=== PATIENT | female | born 1975 | race Caucasian/White ===

== ENCOUNTER 2017-03-12 08:50 | Emergency (ER) | payer OTHER ==
[~2017-03-12] VITALS: Ht 175.3 cm; Wt 100.0 kg
[2017-03-12 08:52] VITALS: BP 171/107; PULSE 99; RESP 18; TEMP 99; O2SAT 100
[2017-03-12] MEDS ORDERED: HYDR-3516 PO (09:21)
[2017-03-12] MEDS ORDERED: KETOROLAC TROMETHAMINE 60 MG/2 ML (IM) VIAL IM ONE (09:30)
--- NOTE | 2017-03-12 09:31 | PD ---
HPI Chief Complaint: Back/ Neck Pain or Injury Time Seen by Provider: 09:09 Travel History International Travel<30 days: No Contact w/Intl Traveler<30days: No Traveled to known affect area: No History of Present Illness HPI 42-year-old female presents to the emergency room for evaluation of chronic left -sided cervical radiculopathy. [facility] symptoms have been ongoing for several years. She has history of spinal fusion and sees pain management. She is on vacation sailing her boat from [place]. [facility] on February 19, she injured her neck/shoulder and has had severe, constant, sharp pain since then. Pain radiates down her entire left arm. Worse with certain range of motion. No position makes it comfortable. She cannot get any sleep. She takes gabapentin and ibuprofen without relief in symptoms. [facility] she has had to go to the emergency room 4 times since injury because pain has been so severe. She has had 2 x-rays, CT, and an MRI in the past month. She has an appointment with her pain management physician in 5 days to have an injection in her spine which typically resolves her symptoms. She is going to fly to [place] for her appointment. [facility] Social History Tobacco Use: No Allergies-Medications (Allergen,Severity, Reaction): Coded Allergies: No Known Allergies (Unverified , 03/12/17) Reported Meds & Prescriptions Reported Meds & Active Scripts Active Hydrocodone-Acetaminophen 5-325 mg Tab 1 Tab PO Q6H PRN Review of Systems Except as stated in HPI: all other systems reviewed are Neg Physical Exam Narrative GENERAL: Well-nourished, well-developed female in no acute distress. Afebrile. Ambulatory. SKIN: Focused skin assessment warm/dry. HEAD: Normocephalic. EYES: No scleral icterus. No injection or drainage. NECK: Supple, trachea midline. No JVD or lymphadenopathy. CARDIOVASCULAR: Regular rate and rhythm without murmurs, gallops, or rubs. RESPIRATORY: Breath sounds equal bilaterally. No accessory muscle use. MUSCULOSKELETAL: No cyanosis, or edema. 2+ radial pulse. Limited range of motion of the left upper extremity secondary to pain. Data Data Last Documented VS Vital Signs Date Time Temp Pulse Resp B/P (MAP) Pulse Ox O2 Delivery O2 Flow Rate FiO2 03/12/17 08:52 99.0 99 18 171/107 (128) 100 Room Air Orders Orders Ketorolac Inj (Toradol Inj) (03/12/17 09:30) [facility] Medical Decision Making Medical Screen Exam Complete: Yes Emergency Medical Condition: Yes Medical Record Reviewed: Yes Differential Diagnosis Acute on chronic pain, radiculopathy, fracture, contusion Narrative Course 42-year-old female presents to the emergency room for evaluation of chronic left -sided cervical radiculopathy. States she injured her arm/neck on a sailboat 3 weeks ago and has had constant, severe pain since then. She plans to fly back to see her pain management physician in 5 days for injections. In the past month she has had 2 x-rays, CT, and MRI. Patient was informed it is against emergency room policy to prescribe narcotic pain medications. She will be given a short course of low-dose medication until she can get to see her physician. She was given Toradol in the ED. She understands and agrees to plan. Diagnosis Primary Impression: Cervical radiculopathy, chronic Referrals: Primary Care Physician Additional Instructions: Rest and drink plenty of fluids. Take Lortab as directed, as needed for pain. Do not drink alcohol or drive while taking this medication. Take ibuprofen with food as directed, as needed for pain. Apply ice to the affected area for 20 minutes at a time, as needed for pain and swelling. Follow-up with pain management physician as planned. Return to the emergency room for worsening symptoms. Med/Other Pt SpecificInfo: Prescription(s) given Scripts Hydrocodone-Acetaminophen (Hydrocodone-Acetaminophen) 5-325 mg Tab 1 TAB PO Q6H Y for PAIN, #12 TAB 0 Refills Prov: Hugo Santiago MD 03/12/17 Disposition: 01 DISCHARGE HOME Condition: Stable Fatuma Medina Mar 12, 2017 09:31
== END 2017-03-12 09:41 | disposition home or self-care (01) ==
LOC: NEPK 08:50
DX: M54.12 Radiculopathy, cervical region (principal); Z98.1 Arthrodesis status; X58.XXXS Exposure to other specified factors, sequela
CPT/HCPCS: 96372; 99284; J1885